=== PATIENT | female | born 1960 | race Caucasian/White ===

== ENCOUNTER 2016-09-01 03:39 | Emergency (ER) | payer OTHER ==
[~2016-09-01] VITALS: Ht 160 cm; Wt 68.0 kg
[~2016-09-01 03:39] MED LIST: ASPI-1063 PO; ATEN100T44 PO; ESCI20TA PO; HYDR-1115 PO; HYDR12.5 PO; LABE100T PO; LORA-258 PO; LOSA100T11 PO
[2016-09-01 03:55] VITALS: BP 228/122; PULSE 59; RESP 16; TEMP 97.6; O2SAT 98
[2016-09-01] MEDS ORDERED: NITROGLYCERIN 1 INCH (GM) OINT. TP ONE (04:15)
[2016-09-01] MEDS ORDERED: DIPHENHYDRAMINE INJ 50 MG/ML VIAL IVP ONE (04:15)
[2016-09-01] MEDS ORDERED: ONDANSETRON HCL 4 MG/2 ML VIAL IVP ONE (04:15)
[2016-09-01] MEDS ORDERED: LOSARTAN POTASSIUM 50 MG TABLET (COZAAR) PO ONE (04:15)
[2016-09-01] MEDS ORDERED: LORazepam 2 MG/ML VIAL (FOR ER USE) IVP ONE (04:15)
[2016-09-01] MEDS ORDERED: ACETAMINOPHEN 500 MG TABLET PO ONE (04:15)
[2016-09-01] MEDS ORDERED: METOPROLOL TARTRATE 5 MG/5 ML VIAL IVP ONE (04:15)
[2016-09-01] MEDS ORDERED: PROCHLORPERAZINE EDISYLATE 10 MG/2 ML VIAL IVP ONE (04:15)
[2016-09-01 04:52] LABS: BASOPHILS # (AUTO) 0.1 K/uL (0.0-0.2); BASOPHILS % (AUTO) 0.6 % (0.0-2.0); EOSINOPHILS # (AUTO) 0.3 K/uL (0.0-0.4); EOSINOPHILS % (AUTO) 3.4 % (0.0-4.0); HEMATOCRIT 40.6 % (36-48); HEMOGLOBIN 13.5 g/dL (12.0-16.0); LYMPHOCYTES # (AUTO) 3.4 K/uL (1.0-5.5); LYMPHOCYTES % (AUTO) 34.8 % (20.5-51.5); MEAN CORPUSCULAR HEMOGLOBIN 28 pg (27-31); MEAN CORPUSCULAR HGB CONC 33 % (32-36); MEAN CORPUSCULAR VOLUME 83 fL (79.0-98.0); MONOCYTES # (AUTO) 0.8 K/uL (0.0-1.0); MONOCYTES % (AUTO) 7.9 % (1.7-9.3); NEUTROPHILS # (AUTO) 5.3 K/uL (1.8-7.7); NEUTROPHILS % (AUTO) 53.3 % (40.0-70.0); PLATELET COUNT (AUTO) 221 K/uL (130-430); RED BLOOD CELL COUNT(AUTO) 4.86 MIL/uL (4.2-6.2); RED CELL DISTRIBUTION WIDTH 12.4 % (9.0-15.0); WHITE BLOOD COUNT (AUTO) 9.9 K/uL (4.8-10.8)
[2016-09-01 05:00] LABS: CALCIUM 11.6 mg/dL (8.4-11.0); CREATININE 0.98 mg/dL (0.55-1.30); POTASSIUM 4.2 mmol/L (3.5-5.1)
[2016-09-01 05:06] LABS: ALBUMIN 3.5 g/dL (3.4-4.8); TOTAL BILIRUBIN 0.3 mg/dL (0.0-1.0); TOTAL PROTEIN, SERUM 8.2 g/dL (6.4-8.3)
[2016-09-01 05:13] LABS: INR 0.9 (0.8-1.2); PROTHROMBIN TIME 9.9 SECS (9.5-12.5)
[2016-09-01 07:00] VITALS: BP 153/72; PULSE 53; RESP 16; TEMP 98.6; O2SAT 99
== END 2016-09-01 07:00 | disposition home or self-care (01) ==
LOC: SED 03:39
DX: I10 Essential (primary) hypertension (principal); R51 Headache; F41.9 Anxiety disorder, unspecified
CPT/HCPCS: 36415; 70450; 71010; 80053; 85025; 85610; 93005; 99285; J0780; J1200; J2060; J2405; J3490

== ENCOUNTER 2020-06-30 09:26 | Emergency (ER) | payer OTHER, SELFPAY ==
[~2020-06-30] VITALS: Ht 162.6 cm; Wt 70.3 kg
[2020-06-30 09:26] VITALS: BP_SYST 168
[~2020-06-30 09:26] MED LIST changes: -ASPI-1063 PO; +ASPI-1393 PO; +ATEN-168 PO; -ATEN100T44 PO; -HYDR-1115 PO; +HYDR-4038 PO; -LABE100T PO; -LOSA100T11 PO; +LOSA100T3 PO
--- NOTE | 2020-06-30 09:26 | NUR ---
BROUGHT INTO TRIAGE TENT AND TRIAGED. WILL ASSUME CARE
--- NOTE | 2020-06-30 09:30 | NUR ---
DR BLUM OUT TO TRIAGE TENT FOR EVALUATION
--- NOTE | 2020-06-30 10:00 | NUR ---
Patient given written and verbal discharge instructions and verbalizes understanding. ER MD discussed with patient the results and treatment provided. Patient in stable condition. ID arm band removed Rx of TRAMADOL given. Patient educated on pain management and to follow up with PMD. Pain Scale 0/10. Opportunity for questions provided and answered. Medication side effect fact sheet provided.
== END 2020-06-30 09:57 | disposition home or self-care (01) ==
LOC: SED 09:29
DX: U07.1 COVID-19 (principal); J18.9 Pneumonia, unspecified organism; I10 Essential (primary) hypertension; F41.9 Anxiety disorder, unspecified; Z79.899 Other long term (current) drug therapy; Z79.82 Long term (current) use of aspirin
CPT/HCPCS: 99283

== ENCOUNTER 2021-01-23 03:59 | Observation (INO) | payer OTHER, SELFPAY ==
[~2021-01-23] VITALS: Ht 157.5 cm; Wt 74.4 kg
[2021-01-23 04:00] VITALS: BP_SYST 173
[2021-01-23] MEDS ORDERED: CARV25TA55 PO (04:16)
[2021-01-23] MEDS ORDERED: APIX5TAB4 PO (04:16)
[2021-01-23] MEDS ORDERED: SERT-131 PO (04:16)
[2021-01-23] MEDS ORDERED: HYDR-4039 PO (04:16)
[2021-01-23] MEDS ORDERED: METOPROLOL TARTRATE 5 MG/5 ML VIAL IVP ONE (04:30)
[2021-01-23] MEDS ORDERED: ASPIRIN 325 MG TABLET PO ONE (04:30)
[2021-01-23 04:58] LABS: BASOPHILS # (AUTO) 0.1 K/uL (0.0-0.2); BASOPHILS % (AUTO) 0.7 % (0.0-2.0); EOSINOPHILS # (AUTO) 0.3 K/uL (0.0-0.4); EOSINOPHILS % (AUTO) 3.7 % (0.0-4.0); HEMATOCRIT 37.6 % (36-48); HEMOGLOBIN 12.5 g/dL (12.0-16.0); LYMPHOCYTES # (AUTO) 2.2 K/uL (1.0-5.5); LYMPHOCYTES % (AUTO) 31.1 % (20.5-51.5); MEAN CORPUSCULAR HEMOGLOBIN 27 pg (27-31); MEAN CORPUSCULAR HGB CONC 33 % (32-36); MEAN CORPUSCULAR VOLUME 82 fL (79.0-98.0); MONOCYTES # (AUTO) 0.6 K/uL (0.0-1.0); MONOCYTES % (AUTO) 8.6 % (1.7-9.3); NEUTROPHILS % (AUTO) 55.9 % (40.0-70.0); PLATELET COUNT (AUTO) 208 K/uL (130-430); RED BLOOD CELL COUNT(AUTO) 4.59 MIL/uL (4.2-6.2); WHITE BLOOD COUNT (AUTO) 7.1 K/uL (4.8-10.8)
[2021-01-23 05:01] LABS: ANION GAP 10 (5-15); CALCIUM 8.9 mg/dL (8.4-11.0); CHLORIDE 102 mmol/L (98-107); CREATININE 1.02 mg/dL (0.55-1.30); GLUCOSE 134 mg/dL (70-99); POTASSIUM 3.6 mmol/L (3.5-5.1); SODIUM SERUM 140 mmol/L (136-145); UREA NITROGEN, BLOOD 18 mg/dL (8-21)
[2021-01-23 05:16] LABS: ALANINE AMINOTRANSFERASE 21 U/L (12-78); ALBUMIN 3.5 g/dL (3.4-4.8); ASPARTATE AMINOTRANSFERASE 18 U/L (10-37); PHOSPHORUS 3.4 mg/dL (2.7-4.5); THYROID STIMULATING HORMONE 3.39 uIu/mL (0.36-3.74); TOTAL BILIRUBIN 0.4 mg/dL (0.0-1.0)
[2021-01-23 05:18] LABS: GFR AFRICAN AMERICAN 71 mL/min (>90)
[2021-01-23 05:45] LABS: BILIRUBIN,URINE NEGATIVE (NEGATIVE); BLOOD, URINE NEGATIVE (NEGATIVE); CLARITY/URINE CLEAR (CLEAR); COLOR,URINE YELLOW (YELLOW); GLUCOSE,URINE NEGATIVE (NEGATIVE); KETONES,URINE NEGATIVE (NEGATIVE); LEUKOCYTE ESTERASE ,URINE NEGATIVE (NEGATIVE); NITRITE, URINE NEGATIVE (NEGATIVE); PH,URINE 6.5 (5.0-8.0); PROTEIN URINE NEGATIVE (NEGATIVE); UROBILINOGEN,URINE 0.2 (0.2-1.0)
[2021-01-23] MEDS ORDERED: CARVEDILOL 6.25 MG TABLET (COREG) PO ONE (06:15)
[2021-01-23] MEDS ORDERED: hydrALAZINE HCL 20 MG/ML VIAL IVP ONE ×2 (06:15→15:30)
[2021-01-23 08:00] VITALS: BP_SYST 150
[2021-01-23] MEDS ORDERED: ACETAMINOPHEN 325 MG TABLET PO PRN (08:30)
[2021-01-23] MEDS ORDERED: MORPHINE 4 MG INJ. 4 MG/ML VIAL IVP PRN (08:30)
[2021-01-23] MEDS ORDERED: HYDROcodone/ACETAMIN 5-325 MG TAB (NORCO/ VICODIN) PO PRN (08:30)
[2021-01-23] MEDS ORDERED: ALBUTEROL SULFATE 0.083% 2.5 MG/3 ML VIAL.NEB INH PRN (08:30)
[2021-01-23] MEDS ORDERED: NALOXONE HCL 0.4 MG/ML AMP (NARCAN) IVP PRN (08:30)
[2021-01-23] MEDS ORDERED: LORazepam 2 MG/ML VIAL IVP PRN (08:30)
[2021-01-23] MEDS ORDERED: APIXABAN 2.5 MG TABLET PO ONE (09:00)
[2021-01-23] MEDS ORDERED: SERTRALINE HCL 50 MG TABLET PO ONE (09:00)
[2021-01-23] MEDS ORDERED: CARVEDILOL 25 MG TABLET (COREG) PO ONE (09:00)
[2021-01-23] MEDS ORDERED: LOSARTAN POTASSIUM 50 MG TABLET (COZAAR) PO ONE (09:00)
[2021-01-23] MEDS ORDERED: hydrALAZINE HCL 25 MG TABLET PO ONE (09:00)
[2021-01-23 09:02] VITALS: BP_SYST 157
[2021-01-23 11:14] VITALS: BP_SYST 152
[2021-01-23] MEDS ORDERED: NORMAL SALINE 5 ML DISP.SYRIN IVF SCH (14:00)
[2021-01-23 14:37] VITALS: BP_SYST 156
[2021-01-23] MEDS ORDERED: hydrALAZINE HCL 25 MG TABLET PO SCH (15:00)
[2021-01-23 16:06] VITALS: BP_SYST 156
[2021-01-23] MEDS ORDERED: CARVEDILOL 25 MG TABLET (COREG) PO SCH (21:00)
[2021-01-23] MEDS ORDERED: APIXABAN 2.5 MG TABLET PO SCH (21:00)
[2021-01-24] MEDS ORDERED: LOSARTAN POTASSIUM 50 MG TABLET (COZAAR) PO SCH (09:00)
[2021-01-24] MEDS ORDERED: SERTRALINE HCL 50 MG TABLET PO SCH (09:00)
== END 2021-01-23 16:30 | disposition home or self-care (01) ==
LOC: SED 03:59 → STU 06:09
PROVIDERS: ADMIT Internal Medicine Hospice and Palliative Medicine; ATTEND Internal Medicine Hospice and Palliative Medicine
DX: R07.89 Other chest pain (principal); Z20.822 Contact with and (suspected) exposure to COVID-19; I11.9 Hypertensive heart disease without heart failure; I48.20 Chronic atrial fibrillation, unspecified; R73.9 Hyperglycemia, unspecified; E78.5 Hyperlipidemia, unspecified; E66.09 Other obesity due to excess calories; F41.8 Other specified anxiety disorders; E78.00 Pure hypercholesterolemia, unspecified; Z79.899 Other long term (current) drug therapy; Z79.82 Long term (current) use of aspirin; Z79.01 Long term (current) use of anticoagulants
CPT/HCPCS: 36415; 70450; 71045; 76376; 80053; 81003; 82962; 83036; 83735; 83880; 84100; 84443; 84484; 85025; 87426; 93005; 93306; 93880; 96374; 96376; 99285; G0378; J0360; J3490

== ENCOUNTER 2021-07-22 16:12 | Emergency (ER) | payer OTHER, SELFPAY ==
[~2021-07-22] VITALS: Ht 157.5 cm; Wt 68.0 kg
[~2021-07-22 16:12] MED LIST changes: +APIX5TAB4 PO; -ASPI-1393 PO; -ATEN-168 PO; +CARV25TA55 PO; -ESCI20TA PO; -HYDR-4038 PO; +HYDR-4039 PO; -HYDR12.5 PO; -LORA-258 PO; +SERT-131 PO
[2021-07-22 16:28] VITALS: BP_SYST 210
[2021-07-22] MEDS ORDERED: amLODIPine BESYLATE 10 MG TABLET PO ONE (16:30)
[2021-07-22 17:13] LABS: BASOPHILS # (AUTO) 0.1 K/uL (0.0-0.2); BASOPHILS % (AUTO) 0.8 % (0.0-2.0); EOSINOPHILS # (AUTO) 0.2 K/uL (0.0-0.4); EOSINOPHILS % (AUTO) 1.8 % (0.0-4.0); HEMATOCRIT 37.7 % (36-48); HEMOGLOBIN 12.8 g/dL (12.0-16.0); LYMPHOCYTES # (AUTO) 1.9 K/uL (1.0-5.5); LYMPHOCYTES % (AUTO) 19.4 % (20.5-51.5); MEAN CORPUSCULAR HEMOGLOBIN 27 pg (27-31); MEAN CORPUSCULAR HGB CONC 34 % (32-36); MEAN CORPUSCULAR VOLUME 80 fL (79.0-98.0); MONOCYTES # (AUTO) 0.5 K/uL (0.0-1.0); MONOCYTES % (AUTO) 5.7 % (1.7-9.3); NEUTROPHILS % (AUTO) 72.3 % (40.0-70.0); PLATELET COUNT (AUTO) 255 K/uL (130-430); RED BLOOD CELL COUNT(AUTO) 4.72 MIL/uL (4.2-6.2); RED CELL DISTRIBUTION WIDTH 13.9 % (9.0-15.0); WHITE BLOOD COUNT (AUTO) 9.7 K/uL (4.8-10.8)
--- NOTE | 2021-07-22 17:16 | NUR ---
PT STATES HEADACHE HAS FECREASED, BRIGID TO LAB
[2021-07-22 17:21] LABS: CALCIUM 8.7 mg/dL (8.4-11.0); CREATININE 1.04 mg/dL (0.55-1.30)
[2021-07-22 17:28] LABS: ALBUMIN 3.5 g/dL (3.4-4.8); TOTAL BILIRUBIN 0.4 mg/dL (0.0-1.0)
[2021-07-22] MEDS ORDERED: ACETAMINOPHEN 500 MG TABLET PO ONE (17:45)
[2021-07-22] MEDS ORDERED: ACETAMINOPHEN 500 MG TABLET ONE (17:59)
--- NOTE | 2021-07-22 19:00 | NUR ---
ASSUME CARE OF PT. PT RESTING WITH DAUGHTER AT BEDSIDE. DENIES ANY CURRENT PAIN AT THIS TIME. NAD NOTED. VSS
[2021-07-22 21:37] VITALS: BP_SYST 173
--- NOTE | 2021-07-22 21:38 | NUR ---
Patient given written and verbal discharge instructions and verbalizes understanding. DR. KP QURESHI MD discussed with patient the results and treatment provided. Patient in stable condition. ID arm band removed. IV catheter removed intact and dressing applied, no active bleeding. Patient educated on pain management and to follow up with PMD. Pain Scale . Opportunity for questions provided and answered. Medication side effect fact sheet provided.
== END 2021-07-22 21:38 | disposition home or self-care (01) ==
LOC: SED 16:12
DX: R51.9 Headache, unspecified (principal); I10 Essential (primary) hypertension; I48.91 Unspecified atrial fibrillation; Z79.899 Other long term (current) drug therapy; Z20.822 Contact with and (suspected) exposure to COVID-19
CPT/HCPCS: 36415; 70450-TC; 76376; 80053; 84484; 85025; 93005; 99285

== ENCOUNTER 2023-05-03 08:42 | Inpatient (IN) | payer OTHER ==
[~2023-05-03] VITALS: Ht 157.5 cm; Wt 72.6 kg
[~2023-05-03 08:42] MED LIST changes: +LOSA-415 PO; -LOSA100T3 PO
[2023-05-03 08:44] VITALS: BP_SYST 222; PULSE 95; RESP 18; TEMP 96.9; O2SAT 97
[2023-05-03] MEDS ORDERED: iohexoL 350 mgI/mL, 100 ML INFUS..BTL IV ONE (09:01)
[2023-05-03] MEDS ORDERED: fentaNYL CITRATE/PF 100 MCG/2 ML AMP IVP ONE (09:45)
[2023-05-03] MEDS ORDERED: ASPIRIN 325 MG TABLET PO ONE (09:45)
[2023-05-03] MEDS ORDERED: METOCLOPRAMIDE HCL 10 MG/2 ML VIAL IVP ONE (09:45)
[2023-05-03 09:53] LABS: BASOPHILS # (AUTO) 0.1 K/uL (0.0-0.2); BASOPHILS % (AUTO) 0.9 % (0.0-2.0); EOSINOPHILS # (AUTO) 0.2 K/uL (0.0-0.4); EOSINOPHILS % (AUTO) 2.6 % (0.0-4.0); HEMATOCRIT 37.7 % (36-48); HEMOGLOBIN 12.1 g/dL (12.0-16.0); LYMPHOCYTES % (AUTO) 27.3 % (20.5-51.5); MEAN CORPUSCULAR HEMOGLOBIN 26 pg (27-31); MEAN CORPUSCULAR HGB CONC 32 % (32-36); MEAN CORPUSCULAR VOLUME 82 fL (79.0-98.0); MONOCYTES # (AUTO) 0.6 K/uL (0.0-1.0); MONOCYTES % (AUTO) 8.6 % (1.7-9.3); NEUTROPHILS # (AUTO) 4.5 K/uL (1.8-7.7); NEUTROPHILS % (AUTO) 60.6 % (40.0-70.0); PLATELET COUNT (AUTO) 231 K/uL (130-430); RED BLOOD CELL COUNT(AUTO) 4.58 MIL/uL (4.2-6.2); WHITE BLOOD COUNT (AUTO) 7.4 K/uL (4.8-10.8)
[2023-05-03 10:09] LABS: CALCIUM 8.8 mg/dL (8.4-11.0); CREATININE 0.94 mg/dL (0.55-1.30); POTASSIUM 3.6 mmol/L (3.5-5.1)
[2023-05-03 10:11] LABS: PROTHROMBIN TIME 10.3 SECS (9.5-12.5)
[2023-05-03 10:13] LABS: ALBUMIN 3.5 g/dL (3.4-4.8); TOTAL BILIRUBIN 0.4 mg/dL (0.0-1.0); TOTAL PROTEIN, SERUM 7.7 g/dL (6.4-8.3)
[2023-05-03 10:24] LABS: BILIRUBIN,URINE NEGATIVE (NEGATIVE); CLARITY/URINE CLEAR (CLEAR); COLOR,URINE YELLOW (YELLOW); GLUCOSE,URINE NEGATIVE (NEGATIVE); KETONES,URINE NEGATIVE (NEGATIVE); LEUKOCYTE ESTERASE ,URINE NEGATIVE (NEGATIVE); NITRITE, URINE NEGATIVE (NEGATIVE); PROTEIN URINE NEGATIVE (NEGATIVE); UROBILINOGEN,URINE 0.2 (0.2-1.0)
[2023-05-03 10:28] LABS: BLOOD, URINE TRACE (NEGATIVE)
[2023-05-03 10:33] LABS: BACTERIA,URINE RARE /HPF (None Seen); MUCUS,URINE 1+ /LPF (None Seen); RBC,URINE 0-3 /HPF (0-3); WBC,URINE 0-3 /HPF (0-3)
[2023-05-03 10:44] LABS: BARBITURATE, URINE NEGATIVE (NEG <=200); BENZODIAZEPINE, URINE NEGATIVE (NEG <=150); CANNABINOID, URINE NEGATIVE (NEG <=50); COCAINE, URINE NEGATIVE (NEG <=150); METHAMPHETAMINES SCREEN,URINE NEGATIVE (NEG <=500); OPIATE, URINE NEGATIVE (NEG <=100); PHENCYCLIDINE SCREEN,URINE NEGATIVE (NEG <=25); UR TRICYCLIC ANTIDEPRESSANTS NEGATIVE (NEG <=300); URINE AMPHETAMINE NEGATIVE (NEG <=500); URINE METHADONE NEGATIVE (NEG <=200); URINE OXYCODONE SCREEN NEGATIVE (NEG <=100); URINE PROPOXYPHENE SCREEN NEGATIVE (NEG <=300)
[2023-05-03] MEDS ORDERED: METOPROLOL SUCCINATE 25 MG TAB.SR.24H (TOPROL XL) PO ONE (11:30)
[2023-05-03] MEDS ORDERED: cloNIDine HCL 0.2 MG TABLET PO PRN (11:30)
[2023-05-03] MEDS: cloNIDine HCL 0.1 MG TABLET PO PRN ×2 (11:36→23:11)
[2023-05-03 13:30] VITALS: BP_SYST 158; PULSE 76; RESP 20; TEMP 97.1; O2SAT 96
[2023-05-03] MEDS ORDERED: LABE200T9 PO (13:44)
[2023-05-03 20:00] VITALS: BP_SYST 153; PULSE 81; RESP 18; TEMP 97.4; O2SAT 98
[2023-05-03] MEDS: METOPROLOL SUCCINATE 25 MG TAB.SR.24H (TOPROL XL) PO SCH (20:53)
[2023-05-03] MEDS: APIXABAN 2.5 MG TABLET PO SCH (22:28)
[2023-05-03] MEDS: traMADol HCL HCL 50 MG TABLET (ULTRAM) PO PRN (22:29)
[2023-05-03 22:38] VITALS: O2SAT 98
[2023-05-03 23:29] VITALS: BP_SYST 165; PULSE 74; RESP 18; TEMP 97.1; O2SAT 97
[2023-05-04 05:30] VITALS: BP_SYST 156; PULSE 76; RESP 18; O2SAT 95
[2023-05-04] MEDS: ACETAMINOPHEN 325 MG TABLET PO PRN (06:13)
[2023-05-04 08:00] VITALS: BP_SYST 160; PULSE 79; RESP 18; TEMP 97.3; O2SAT 98
[2023-05-04] MEDS: APIXABAN 2.5 MG TABLET PO SCH ×2 (08:56→21:35)
[2023-05-04] MEDS: METOPROLOL SUCCINATE 25 MG TAB.SR.24H (TOPROL XL) PO SCH ×2 (08:56→21:32)
[2023-05-04 12:00] VITALS: BP_SYST 158; PULSE 80; RESP 18; TEMP 97.4; O2SAT 97
[2023-05-04] MEDS: cloNIDine HCL 0.1 MG TABLET PO PRN (14:00)
[2023-05-04] MEDS: traMADol HCL HCL 50 MG TABLET (ULTRAM) PO PRN (14:07)
[2023-05-04 16:00] VITALS: BP_SYST 167; PULSE 96; RESP 16; TEMP 97.1; O2SAT 96
[2023-05-05 04:28] LABS: BASOPHILS % (AUTO) 0.6 % (0.0-2.0); EOSINOPHILS # (AUTO) 0.2 K/uL (0.0-0.4); EOSINOPHILS % (AUTO) 3.1 % (0.0-4.0); HEMATOCRIT 38.9 % (36-48); HEMOGLOBIN 12.6 g/dL (12.0-16.0); LYMPHOCYTES # (AUTO) 2.4 K/uL (1.0-5.5); LYMPHOCYTES % (AUTO) 32.6 % (20.5-51.5); MEAN CORPUSCULAR HEMOGLOBIN 27 pg (27-31); MEAN CORPUSCULAR HGB CONC 32 % (32-36); MEAN CORPUSCULAR VOLUME 82 fL (79.0-98.0); MONOCYTES # (AUTO) 0.6 K/uL (0.0-1.0); MONOCYTES % (AUTO) 8.5 % (1.7-9.3); NEUTROPHILS % (AUTO) 55.2 % (40.0-70.0); PLATELET COUNT (AUTO) 227 K/uL (130-430); RED BLOOD CELL COUNT(AUTO) 4.73 MIL/uL (4.2-6.2); RED CELL DISTRIBUTION WIDTH 14.1 % (9.0-15.0); WHITE BLOOD COUNT (AUTO) 7.2 K/uL (4.8-10.8)
[2023-05-05 04:40] LABS: CALCIUM 9.1 mg/dL (8.4-11.0); POTASSIUM 3.3 mmol/L (3.5-5.1)
[2023-05-05 08:00] VITALS: BP_SYST 177; PULSE 79; RESP 18; TEMP 98.4; O2SAT 95
[2023-05-05] MEDS: ATORVASTATIN 20 MG TABLET PO SCH (09:10)
[2023-05-05] MEDS: METOPROLOL SUCCINATE 25 MG TAB.SR.24H (TOPROL XL) PO SCH ×2 (09:11→21:52)
[2023-05-05] MEDS: APIXABAN 2.5 MG TABLET PO SCH ×2 (09:13→21:49)
[2023-05-05] MEDS ORDERED: HEPARIN SODIUM,PORCINE 5,000 UNITS/ML VIAL SUBCUT SCH (09:15)
[2023-05-05] MEDS ORDERED: NIFEdipine 30 MG TAB.ER.24 PO ONE (10:00)
[2023-05-05] MEDS ORDERED: SERTRALINE HCL 50 MG TABLET PO ONE (10:00)
[2023-05-05 11:17] VITALS: BP_SYST 175; PULSE 70; RESP 20; TEMP 98.2; O2SAT 96
[2023-05-05] MEDS: cloNIDine HCL 0.1 MG TABLET PO PRN (11:17)
[2023-05-05] MEDS: traMADol HCL HCL 50 MG TABLET (ULTRAM) PO PRN ×2 (15:01→22:02)
[2023-05-05 16:00] VITALS: BP_SYST 134; PULSE 80; RESP 20; TEMP 98.1; O2SAT 98
[2023-05-05 20:00] VITALS: BP_SYST 136; PULSE 75; RESP 18; TEMP 97.8; O2SAT 96
[2023-05-06] VITALS (7 sets, daily range): BP systolic 133–151; PULSE 80–94; RESP 16–18; TEMP 97.5–98.4; O2SAT 93–96
[2023-05-06 05:07] LABS: BASOPHILS # (AUTO) 0.1 K/uL (0.0-0.2); EOSINOPHILS # (AUTO) 0.3 K/uL (0.0-0.4); EOSINOPHILS % (AUTO) 3.9 % (0.0-4.0); HEMOGLOBIN 13.4 g/dL (12.0-16.0); LYMPHOCYTES # (AUTO) 2.5 K/uL (1.0-5.5); LYMPHOCYTES % (AUTO) 30.7 % (20.5-51.5); MEAN CORPUSCULAR HEMOGLOBIN 27 pg (27-31); MEAN CORPUSCULAR HGB CONC 33 % (32-36); MEAN CORPUSCULAR VOLUME 82 fL (79.0-98.0); MONOCYTES # (AUTO) 0.6 K/uL (0.0-1.0); MONOCYTES % (AUTO) 7.2 % (1.7-9.3); NEUTROPHILS # (AUTO) 4.6 K/uL (1.8-7.7); NEUTROPHILS % (AUTO) 57.2 % (40.0-70.0); PLATELET COUNT (AUTO) 237 K/uL (130-430); RED BLOOD CELL COUNT(AUTO) 4.99 MIL/uL (4.2-6.2); RED CELL DISTRIBUTION WIDTH 13.8 % (9.0-15.0)
[2023-05-06 05:15] LABS: CALCIUM 9.8 mg/dL (8.4-11.0); CREATININE 1.09 mg/dL (0.55-1.30); POTASSIUM 3.9 mmol/L (3.5-5.1)
[2023-05-06] MEDS: SERTRALINE HCL 50 MG TABLET PO SCH (08:55)
[2023-05-06] MEDS: METOPROLOL SUCCINATE 25 MG TAB.SR.24H (TOPROL XL) PO SCH ×2 (08:55→20:25)
[2023-05-06] MEDS: NIFEdipine 30 MG TAB.ER.24 PO SCH (08:55)
[2023-05-06] MEDS: ATORVASTATIN 20 MG TABLET PO SCH (08:55)
[2023-05-06] MEDS: APIXABAN 2.5 MG TABLET PO SCH ×2 (08:56→15:18)
[2023-05-06] MEDS: ACETAMINOPHEN 325 MG TABLET PO PRN (14:55)
[2023-05-06] MEDS: traMADol HCL HCL 50 MG TABLET (ULTRAM) PO PRN (20:29)
[2023-05-07] VITALS (7 sets, daily range): BP systolic 127–152; PULSE 79–88; RESP 18–19; TEMP 97.2–97.9; O2SAT 96–97
[2023-05-07 05:02] LABS: BASOPHILS % (AUTO) 0.5 % (0.0-2.0); EOSINOPHILS # (AUTO) 0.2 K/uL (0.0-0.4); EOSINOPHILS % (AUTO) 3.3 % (0.0-4.0); HEMATOCRIT 41.2 % (36-48); HEMOGLOBIN 13.3 g/dL (12.0-16.0); LYMPHOCYTES # (AUTO) 2.4 K/uL (1.0-5.5); LYMPHOCYTES % (AUTO) 34.4 % (20.5-51.5); MEAN CORPUSCULAR HEMOGLOBIN 26 pg (27-31); MEAN CORPUSCULAR HGB CONC 32 % (32-36); MEAN CORPUSCULAR VOLUME 82 fL (79.0-98.0); MONOCYTES # (AUTO) 0.6 K/uL (0.0-1.0); MONOCYTES % (AUTO) 9.1 % (1.7-9.3); NEUTROPHILS # (AUTO) 3.6 K/uL (1.8-7.7); NEUTROPHILS % (AUTO) 52.7 % (40.0-70.0); PLATELET COUNT (AUTO) 236 K/uL (130-430); RED BLOOD CELL COUNT(AUTO) 5.03 MIL/uL (4.2-6.2); WHITE BLOOD COUNT (AUTO) 6.9 K/uL (4.8-10.8)
[2023-05-07 05:21] LABS: CALCIUM 9.1 mg/dL (8.4-11.0); CREATININE 1.1 mg/dL (0.55-1.30); POTASSIUM 3.5 mmol/L (3.5-5.1)
[2023-05-07] MEDS: APIXABAN 2.5 MG TABLET PO SCH ×2 (07:54→07:55)
[2023-05-07] MEDS: NIFEdipine 30 MG TAB.ER.24 PO SCH (09:11)
[2023-05-07] MEDS: SERTRALINE HCL 50 MG TABLET PO SCH (09:12)
[2023-05-07] MEDS: ATORVASTATIN 20 MG TABLET PO SCH (09:12)
[2023-05-07] MEDS: METOPROLOL SUCCINATE 25 MG TAB.SR.24H (TOPROL XL) PO SCH ×2 (09:12→21:09)
[2023-05-07] MEDS ORDERED: CHLORTHALIDONE 25 MG TABLET (HYGROTON) PO ONE (10:00)
[2023-05-07 11:30] LABS: PROTHROMBIN TIME 10.4 SECS (9.5-12.5)
[2023-05-07] MEDS: traMADol HCL HCL 50 MG TABLET (ULTRAM) PO PRN ×2 (13:00→22:09)
[2023-05-07] MEDS: ACETAMINOPHEN 325 MG TABLET PO PRN (22:09)
[2023-05-08 00:12] VITALS: BP_SYST 130; PULSE 76; RESP 18; TEMP 98.2; O2SAT 98
[2023-05-08 04:50] LABS: BASOPHILS % (AUTO) 0.6 % (0.0-2.0); EOSINOPHILS # (AUTO) 0.3 K/uL (0.0-0.4); EOSINOPHILS % (AUTO) 3.3 % (0.0-4.0); HEMATOCRIT 41.5 % (36-48); HEMOGLOBIN 13.5 g/dL (12.0-16.0); LYMPHOCYTES # (AUTO) 2.9 K/uL (1.0-5.5); LYMPHOCYTES % (AUTO) 35.5 % (20.5-51.5); MEAN CORPUSCULAR HEMOGLOBIN 27 pg (27-31); MEAN CORPUSCULAR HGB CONC 33 % (32-36); MEAN CORPUSCULAR VOLUME 82 fL (79.0-98.0); MONOCYTES # (AUTO) 0.6 K/uL (0.0-1.0); MONOCYTES % (AUTO) 7.7 % (1.7-9.3); NEUTROPHILS # (AUTO) 4.2 K/uL (1.8-7.7); NEUTROPHILS % (AUTO) 52.9 % (40.0-70.0); PLATELET COUNT (AUTO) 243 K/uL (130-430); RED BLOOD CELL COUNT(AUTO) 5.06 MIL/uL (4.2-6.2); RED CELL DISTRIBUTION WIDTH 13.7 % (9.0-15.0)
[2023-05-08 05:18] LABS: CALCIUM 9.6 mg/dL (8.4-11.0); CREATININE 1.1 mg/dL (0.55-1.30); POTASSIUM 3.3 mmol/L (3.5-5.1)
[2023-05-08] MEDS ORDERED: HYG25 PO (06:38)
[2023-05-08] MEDS ORDERED: NIFEdipine PO (06:38)
[2023-05-08 08:00] VITALS: BP_SYST 159; PULSE 79; RESP 18; TEMP 98.4; O2SAT 97; O2SAT 99
[2023-05-08] MEDS: NIFEdipine 30 MG TAB.ER.24 PO SCH (08:59)
[2023-05-08] MEDS: METOPROLOL SUCCINATE 25 MG TAB.SR.24H (TOPROL XL) PO SCH ×2 (08:59→20:31)
[2023-05-08] MEDS: CHLORTHALIDONE 25 MG TABLET (HYGROTON) PO SCH (09:00)
[2023-05-08] MEDS: SERTRALINE HCL 50 MG TABLET PO SCH (09:00)
[2023-05-08] MEDS: ATORVASTATIN 20 MG TABLET PO SCH (09:00)
[2023-05-08 12:56] VITALS: BP_SYST 145; PULSE 78; RESP 17; TEMP 98.3; O2SAT 98
[2023-05-08 16:00] VITALS: BP_SYST 149; PULSE 85; RESP 18; TEMP 98.5; O2SAT 98
[2023-05-08 20:15] VITALS: BP_SYST 136; PULSE 77; RESP 20; TEMP 97.1; O2SAT 95
[2023-05-08] MEDS: traMADol HCL HCL 50 MG TABLET (ULTRAM) PO PRN (20:31)
[2023-05-09] VITALS: BP_SYST 136; PULSE 83; RESP 18; TEMP 97.5; O2SAT 97
[2023-05-09 08:00] VITALS: O2SAT 96
[2023-05-09] MEDS: CHLORTHALIDONE 25 MG TABLET (HYGROTON) PO SCH (09:00)
[2023-05-09] MEDS: METOPROLOL SUCCINATE 25 MG TAB.SR.24H (TOPROL XL) PO SCH ×2 (09:42→20:29)
[2023-05-09] MEDS: SERTRALINE HCL 50 MG TABLET PO SCH (09:42)
[2023-05-09] MEDS: NIFEdipine 30 MG TAB.ER.24 PO SCH (09:43)
[2023-05-09] MEDS: ATORVASTATIN 20 MG TABLET PO SCH (09:43)
[2023-05-09 12:00] VITALS: BP_SYST 143; BP_SYST 168; PULSE 76; PULSE 77; RESP 16; RESP 18; TEMP 97.1; TEMP 98.3; O2SAT 96; O2SAT 97
[2023-05-09 16:00] VITALS: BP_SYST 144; PULSE 82; RESP 16; TEMP 96.6; O2SAT 97
[2023-05-09 20:00] VITALS: BP_SYST 164; PULSE 74; RESP 16; TEMP 97.3; O2SAT 98
[2023-05-09] MEDS ORDERED: POTASSIUM CHLORIDE 20 MEQ TAB.PRT.SR PO ONE (20:00)
[2023-05-09 23:59] VITALS: O2SAT 98
[2023-05-10] VITALS (7 sets, daily range): BP systolic 133–170; PULSE 70–95; RESP 16–18; TEMP 97.2–98.7; O2SAT 96–100
[2023-05-10 05:59] LABS: BILIRUBIN,URINE NEGATIVE (NEGATIVE); BLOOD, URINE NEGATIVE (NEGATIVE); CLARITY/URINE CLEAR (CLEAR); COLOR,URINE YELLOW (YELLOW); GLUCOSE,URINE NEGATIVE (NEGATIVE); KETONES,URINE NEGATIVE (NEGATIVE); LEUKOCYTE ESTERASE ,URINE NEGATIVE (NEGATIVE); NITRITE, URINE NEGATIVE (NEGATIVE); PH,URINE 6.5 (5.0-8.0); PROTEIN URINE NEGATIVE (NEGATIVE); UROBILINOGEN,URINE 0.2 (0.2-1.0)
[2023-05-10 06:06] LABS: BASOPHILS # (AUTO) 0.1 K/uL (0.0-0.2); BASOPHILS % (AUTO) 0.9 % (0.0-2.0); EOSINOPHILS # (AUTO) 0.2 K/uL (0.0-0.4); EOSINOPHILS % (AUTO) 3.4 % (0.0-4.0); HEMATOCRIT 40.2 % (36-48); HEMOGLOBIN 13.1 g/dL (12.0-16.0); LYMPHOCYTES # (AUTO) 2.4 K/uL (1.0-5.5); LYMPHOCYTES % (AUTO) 35.2 % (20.5-51.5); MEAN CORPUSCULAR HEMOGLOBIN 27 pg (27-31); MEAN CORPUSCULAR HGB CONC 33 % (32-36); MEAN CORPUSCULAR VOLUME 82 fL (79.0-98.0); MONOCYTES # (AUTO) 0.5 K/uL (0.0-1.0); MONOCYTES % (AUTO) 7.1 % (1.7-9.3); NEUTROPHILS # (AUTO) 3.6 K/uL (1.8-7.7); NEUTROPHILS % (AUTO) 53.4 % (40.0-70.0); PLATELET COUNT (AUTO) 239 K/uL (130-430); RED BLOOD CELL COUNT(AUTO) 4.88 MIL/uL (4.2-6.2); RED CELL DISTRIBUTION WIDTH 14.2 % (9.0-15.0); WHITE BLOOD COUNT (AUTO) 6.7 K/uL (4.8-10.8)
[2023-05-10 06:27] LABS: ALBUMIN 3.5 g/dL (3.4-4.8); CALCIUM 9.3 mg/dL (8.4-11.0); CREATININE 1.1 mg/dL (0.55-1.30); POTASSIUM 4.1 mmol/L (3.5-5.1); TOTAL BILIRUBIN 0.4 mg/dL (0.0-1.0); TOTAL PROTEIN, SERUM 7.8 g/dL (6.4-8.3)
[2023-05-10 06:42] LABS: INR 1.1 (0.8-1.2); PROTHROMBIN TIME 11.4 SECS (9.5-12.5)
[2023-05-10] MEDS: ATORVASTATIN 20 MG TABLET PO SCH (09:00)
[2023-05-10] MEDS: NIFEdipine 30 MG TAB.ER.24 PO SCH (09:00)
[2023-05-10] MEDS: SERTRALINE HCL 50 MG TABLET PO SCH (09:00)
[2023-05-10] MEDS: cloNIDine HCL 0.1 MG TABLET PO PRN (10:20)
[2023-05-10] MEDS ORDERED: GADOBENATE DIMEGLUMINE 529 MG/ML, 5 ML VIAL IV ONE (10:41)
[2023-05-10] MEDS ORDERED: METOPROLOL TARTRATE 50 MG TABLET PO ONE (14:00)
[2023-05-10] MEDS ORDERED: fentaNYL CITRATE/PF 100 MCG/2 ML AMP ONE (15:09)
[2023-05-10] MEDS ORDERED: MIDAZOLAM HCL 2 MG/2 ML VIAL (VERSED) ONE (15:10)
[2023-05-10] MEDS ORDERED: ACETAMINOPHEN I.V. 1000 MG 100 ML IV ONE (15:10)
[2023-05-10] MEDS: traMADol HCL HCL 50 MG TABLET (ULTRAM) PO PRN (22:25)
[2023-05-10] MEDS: METOPROLOL SUCCINATE 25 MG TAB.SR.24H (TOPROL XL) PO SCH (22:26)
[2023-05-11 01:59] VITALS: BP_SYST 146; PULSE 85; RESP 18; TEMP 97.6; O2SAT 97
[2023-05-11 05:17] LABS: BASOPHILS % (AUTO) 0.3 % (0.0-2.0); EOSINOPHILS % (AUTO) 0.3 % (0.0-4.0); HEMATOCRIT 41.3 % (36-48); HEMOGLOBIN 13.5 g/dL (12.0-16.0); LYMPHOCYTES # (AUTO) 1.3 K/uL (1.0-5.5); MEAN CORPUSCULAR HEMOGLOBIN 27 pg (27-31); MEAN CORPUSCULAR HGB CONC 33 % (32-36); MEAN CORPUSCULAR VOLUME 82 fL (79.0-98.0); MONOCYTES # (AUTO) 0.5 K/uL (0.0-1.0); MONOCYTES % (AUTO) 3.4 % (1.7-9.3); NEUTROPHILS # (AUTO) 11.3 K/uL (1.8-7.7); PLATELET COUNT (AUTO) 284 K/uL (130-430); RED BLOOD CELL COUNT(AUTO) 5.02 MIL/uL (4.2-6.2); RED CELL DISTRIBUTION WIDTH 14.1 % (9.0-15.0); WHITE BLOOD COUNT (AUTO) 13.1 K/uL (4.8-10.8)
[2023-05-11 05:28] LABS: CALCIUM 9.6 mg/dL (8.4-11.0); CREATININE 1.1 mg/dL (0.55-1.30); POTASSIUM 4.2 mmol/L (3.5-5.1)
[2023-05-11 08:00] VITALS: BP_SYST 190; PULSE 91; RESP 18; TEMP 99; O2SAT 98; O2SAT 99
[2023-05-11] MEDS: SERTRALINE HCL 50 MG TABLET PO SCH (08:43)
[2023-05-11] MEDS: ATORVASTATIN 20 MG TABLET PO SCH (08:43)
[2023-05-11] MEDS: cloNIDine HCL 0.1 MG TABLET PO PRN (08:43)
[2023-05-11] MEDS: METOPROLOL SUCCINATE 25 MG TAB.SR.24H (TOPROL XL) PO SCH (08:43)
[2023-05-11] MEDS: NIFEdipine 30 MG TAB.ER.24 PO SCH (08:44)
[2023-05-11 12:00] VITALS: BP_SYST 145; PULSE 90; RESP 18; TEMP 98.3; O2SAT 99
[2023-05-11] MEDS ORDERED: LIDOCAINE/EPI 1% 1:100000 20 ML VIAL ONE (15:01)
[2023-05-11] MEDS ORDERED: SEVOFLURANE 15 MIN GAS INH ONE (15:01)
[2023-05-11] MEDS ORDERED: PROPOFOL 200MG/ 20ML VIAL (DIPRIVAN) IV ONE (15:01)
[2023-05-11] MEDS ORDERED: SUCCINYLCHOLINE CHLORIDE 20 MG/ML(QUELICIN) ONE (15:01)
[2023-05-11] MEDS ORDERED: NS 1000 ML IV.SOLN IV ONE (15:01)
[2023-05-11] MEDS ORDERED: DEXAMETHASONE SOD PHOSPHATE 4 MG/ML VIAL ONE (15:01)
[2023-05-11] MEDS ORDERED: KETOROLAC TROMETHAMINE 30 MG VIAL ONE (15:01)
[2023-05-11 15:15] VITALS: BP_SYST 145; PULSE 86; RESP 18; TEMP 98.5; O2SAT 98
[2023-05-11] MEDS: traMADol HCL HCL 50 MG TABLET (ULTRAM) PO PRN (15:56)
[2023-05-11 16:00] VITALS: BP_SYST 140; PULSE 80; RESP 19; TEMP 98.3; O2SAT 99
[2023-05-11] MEDS ORDERED: METO-540 PO (18:59)
== END 2023-05-11 18:30 | disposition home or self-care (01) | DRG 41 ==
LOC: SED 08:42 → STU 11:21 → SMU 05-05 14:18
PROVIDERS: ADMIT Specialist; ATTEND Specialist
PROC: 0KB Muscles, Excision (ICD-10-PCS; principal; 2023-05-10 15:10)
DX: G45.9 Transient cerebral ischemic attack, unspecified (principal); E87.1 Hypo-osmolality and hyponatremia; R59.1 Generalized enlarged lymph nodes; E78.5 Hyperlipidemia, unspecified; I48.91 Unspecified atrial fibrillation; I10 Essential (primary) hypertension; F32.A Depression, unspecified; Z79.899 Other long term (current) drug therapy; Z79.01 Long term (current) use of anticoagulants
CPT/HCPCS: 36415; 70450-TC; 70496; 70498; 70540; 70543; 70551; 71045; 72040-TC; 72100-TC; 76376; 80048; 80053; 80061; 80307; 81000; 81001; 81003; 81015; 82330; 83037; 85025; 85576; 85610-TC; 85730-TC; 86886; 86900; 86901; 87081; 88305; 92610-GN; 93005; 93880; 97110-GP; 97112-GP; 97116-GP; 97530-GO; 97530-GP; 97535-GO; 99291; A9577; G0378; J0131; J0330; J1100; J1885; J2704; J2765; J3010; J3465; J7030; Q9967